=== PATIENT | male | born 1960 | race Caucasian/White ===

== ENCOUNTER → 2017-11-24 | Day surgery (SDC) | payer BC ==
[~2017-11-24] MED LIST: ATROPINE SULFATE 1% OPHT SOLN 5 ML BTL ONE; DEXAMETHASONE SOD PHOS 4 MG/ML VIAL ONE; EPINEPHrine HCL (1:1000) 1 MG/ML VIAL ONE; FLURBIPROFEN 0.03% OPHT SOLN 2.5 ML BTL ONE; HYALURONIDASE/LIDOCAINE/BUPIVACAINE 5 ML SYR ONE; LACTATED RINGER'S 1000 ML INJ 1,000 ML ONE; LIDOCAINE HCL 1% PF 30 ML VIAL ONE; LIDOCAINE HCL 1% PF 5 ML AMPULE ONE; NEOMYCIN/POLYMYXIN/DEXAMETHASONE OPTH OINT 3.5 GM TUBE ONE; PHENYLEPHRINE HCL 2.5 % OPTH SOLN 15 ML BTL ONE; PROPOFOL 100 MG/10 ML INJ IV ONE; SODIUM CHLORIDE 0.9% INJ 10 ML ONE; TETRACAINE 0.5% OPTH SOLN 15 ML BTL ONE; TRIAMCINOLONE ACETONIDE 40 MG/ML VIAL ONE; TROPICAMIDE 1% OPHT SOLN 15 ML BTL ONE; ceFAZolin INJ 1,000 MG VIAL ONE
--- NOTE | 2017-11-30 12:30 | TN ---
cc: JUSTUS KOWALSKI MD DATE OF SURGERY 11/24/2017 DATE OF 1960 PREOPERATIVE DIAGNOSIS Recurrent retinal detachment, posterior vitreoretinopathy and cataract, right eye. POSTOPERATIVE DIAGNOSIS Recurrent retinal detachment, posterior vitreoretinopathy and cataract, right eye. PROCEDURE Pars plana vitrectomy, pars plana lensectomy, membrane peeling, endolaser, silicone oil placement, right eye. ANESTHESIA MAC. SURGEON Bruno. COMPLICATIONS None. DETAILS OF PROCEDURE After an informed consent was obtained the patient was given retrobulbar anesthesia in the preoperative area. The patient was then brought to the operating room and prepared and draped in the usual sterile fashion. A wire lid speculum was placed in the patient's right eye. A 270-degree conjunctival peritomy was then performed using 0.12 forceps and Krishna scissors. Excellent hemostasis was obtained with the bipolar cautery. Scleral hernandez were then made 3 mm posterior to the corneoscleral limbus in the lower temporal, superotemporal and supranasal quadrants. A 6-0 Vicryl mattress suture was placed around the lower temporal owen. 23-gauge vitrectomy cannulas were then placed through these sites. An infusion cannula was placed lower temporally. The phaco fragmatome was then used to remove the nuclear sclerotic cataract. There was a complete retinal detachment posterior to the previous peripheral laser. There were also preretinal membranes which were peeled with intraocular forceps and removed. A complete air-fluid exchange was then performed. Additional endolaser was placed peripherally as well as to the retinotomy site. Silicone oil was then used to fill the vitreous cavity after creating a peripheral iridectomy at 6 o'clock with the vitreous cutter. The three vitrectomy cannulas were removed. The two superior sites were closed with an interrupted 6-0 Vicryl suture. The inferotemporal mattress suture was tied up permanently. The conjunctiva was reapposed using two interrupted 7-0 Vicryl sutures. Subconjunctival injections of dexamethasone, Ancef and Kenalog were placed. Atropine drops, Maxitrol ointment, and a patch and shield were then applied. The patient tolerated the procedure well. There were no complications. He will follow-up tomorrow in my [place] office. Justus Kowalski MD TAB/BT /2:54 PM /11:59 AM
== END | disposition home or self-care (01) ==
LOC: ESDC 13:51
PROVIDERS: ATTEND Ophthalmology Retina Specialist
DX: H33.021 Retinal detachment with multiple breaks, right eye (principal); H35.21 Other non-diabetic proliferative retinopathy, right eye; H26.9 Unspecified cataract
CPT/HCPCS: 00145; 67113; C1814; J0171; J0690; J1100; J3301; J7120